=== PATIENT | female | born 1965 | race Two or more races ===

== ENCOUNTER 2023-09-02 09:25 | Outpatient (CLI) | payer OTHER ==
--- NOTE | 2023-09-02 21:10 | XRAY Report ---
PROCEDURE: Chest 2V INDICATIONS: SHORTNESS OF BREATH TECHNIQUE: 2 views of the chest were acquired. COMPARISON: None. FINDINGS: Surgical changes and devices: None. Lungs and pleura: No pleural effusions or pneumothorax. Lungs are clear. Mediastinum: Mediastinal contours appear normal. Heart size is normal. Bones and chest wall: No suspicious bony lesions. Overlying soft tissues appear unremarkable. IMPRESSION: No acute cardiopulmonary process. Reviewed by: Sudhakar Bustillo MD on 09/02/2023 9:08 PM PDT Approved by: Sudhakar Bustillo MD on 09/02/2023 9:08 PM PDT Station ID: [id number]
== END 2023-09-02 09:26 | disposition home or self-care (01) ==
LOC: DI 09:25
PROVIDERS: ATTEND Physician Assistant
DX: R06.02 Shortness of breath (principal)